=== PATIENT | female | born 1990 | race African-American/Black ===

== ENCOUNTER 2018-10-22 15:05 | Emergency (ER) | payer SELFPAY ==
[~2018-10-22] VITALS: Ht 162.6 cm; Wt 59.0 kg
[2018-10-22] MEDS ORDERED: diphenhydrAMINE 50 MG/ML VIAL IVP ONE (16:00)
[2018-10-22] MEDS ORDERED: KETOROLAC 30 MG/ML VIAL. IV ONE (16:00)
[2018-10-22] MEDS ORDERED: IV RINGERS SOLUTION,LACTATED 1,000 ML IV SCH (16:00)
--- NOTE | 2018-10-22 16:24 | PHYS DOC ---
Past History Past Medical History: Anemia, Sickle Cell Disease, UTI, Other Additional Past Medical Histor: pulmonary embolism Past Surgical History: Cholecystectomy, Other Alcohol Use: None Drug Use: None Adult General Chief Complaint Chief Complaint: LOWER EXT PAIN HPI HPI Patient is a 28 year old female who presents with bilateral lower extremity pain. This started yesterday. This is the same pain that she normally gets with her sickle cell pain crises. Patient denies any fever. Denies any leg swelling. Denies any new shortness of breath. Patient does have a history of sickle cell disease as well as pulmonary embolism. Patient is currently taking XARALTO. Patient denies any fever or cough. Denies any trauma, and no stasis. No rashes or bruising in her legs. Patient is normally managed for her sickle cell disease by [facility], her last apheresis was the end of August. She normally gets the apheresis every 4-5 weeks. She is not using glutamine or hydroxyurea because neither of these worked to decrease the frequency of her vaso-occlusive/pain crises.[] Review of Systems Review of Systems Constitutional: Denies fever or chills [] Eyes: Denies change in visual acuity, redness, or eye pain [] HENT: Denies nasal congestion or sore throat [] Respiratory: Denies cough or shortness of breath [] Cardiovascular: No chest pain or palpitations[] GI: Denies abdominal pain, nausea, vomiting, bloody stools or diarrhea [] : Denies dysuria or hematuria [] Musculoskeletal: See history of present illness[] Integument: Denies rash or skin lesions [] Neurologic: Denies headache, focal weakness or sensory changes [] Endocrine: Denies polyuria or polydipsia [] All other systems were reviewed and found to be within normal limits, except as documented in this note. Current Medications Current Medications Current Medications Medications (Trade) Dose Ordered Sig/Corey Start Time Stop Time Status Last Admin Dose Admin Diphenhydramine HCl (Benadryl) 50 mg 1X ONCE 10/22/18 16:00 10/22/18 16:01 DC Hydromorphone HCl (Dilaudid) 1 mg PRN Q15MIN PRN 10/22/18 16:00 10/23/18 15:59 Ketorolac Tromethamine (Toradol 30mg Vial) 30 mg 1X ONCE 10/22/18 16:00 10/22/18 16:01 DC Lactated Ringer's 1,000 ml @ 1,000 mls/hr Q1H 10/22/18 16:00 10/22/18 16:59 Allergies Allergies Allergies Coded Allergies Type Severity Reaction Last Updated Verified morphine Allergy Unknown 10/22/18 Yes Physical Exam Physical Exam Constitutional: Well developed, well nourished, no acute distress, non-toxic appearance. [] HENT: Normocephalic, atraumatic, bilateral external ears normal, oropharynx moist, no oral exudates, nose normal. [] Eyes: PERRLA, EOMI, conjunctiva normal, no discharge. [] Neck: Normal range of motion, no tenderness, supple, no stridor. [] Cardiovascular:Heart rate regular rhythm, no murmur [] Lungs & Thorax: Bilateral breath sounds clear to auscultation [] Abdomen: Bowel sounds normal, soft, no tenderness, no masses, no pulsatile masses. [] Skin: Warm, dry, no erythema, no rash. [] Back: No tenderness, no CVA tenderness. [] Extremities: Diffuse bilateral lower extremity tenderness, no cyanosis, no clubbing, ROM intact, no edema. [] Neurologic: Alert and oriented X 3, normal motor function, normal sensory function, no focal deficits noted. [] Psychologic: Affect normal, judgement normal, mood normal. [] Current Patient Data Vital Signs Vital Signs Date Time Temp Pulse Resp B/P (MAP) Pulse Ox O2 Delivery O2 Flow Rate FiO2 10/22/18 15:20 98.3 93 20 98 Room Air EKG EKG [] Radiology/Procedures Radiology/Procedures [] Course & Med Decision Making Course & Med Decision Making Pertinent Labs and Imaging studies reviewed. (See chart for details) The course: Patient arrived, was placed in bed, in tolerate exam well. Patient is improving with her pain medicines. At this time waiting for coagulation studies as well as reticulocyte count to evaluate for possibility of a blast crisis. Patient care endorsed to Dr. Lew at 1800 with laboratory tests pending along with pain management[] Impression: 1. Sickle Cell Crisis- 2. Leukocytosis 12. 3. Anemia 8.6 HGB- with Microcytic Hypochromic indices ( pt. report this is normal range for her). 4. UTI Pt. insistent on discharge before Retic count. Pt. declines admission, seems aware of risks. Exhibit [facility] capacity. Pt. states she will keep her follow up. Take Keflex 500 three times a day. Return if any concerns. Pt. May take vicoprofen for marked discomfort. Must follow up. Mahsa Disclaimer Mahsa Disclaimer This electronic medical record was generated, in whole or in part, using a voice recognition dictation system. Departure Departure: Impression: Primary Impression: Vaso-occlusive sickle cell crisis Referrals: PCP,NO (PCP) Scripts Hydrocodone/Ibuprofen (HYDROCODONE-IBUPROFEN 7.5-200 ) 1 Each Tablet 1 TAB PO PRN Q6HRS PRN for PAIN, #30 TAB 0 Refills Prov: MAGO LWE MD 10/22/18 Cephalexin (KEFLEX) 500 Mg Capsule 500 MG PO TID for // for 7 Days, BOTTLE Prov: MAGO LEW MD 10/22/18 HINA ACUNA DO Oct 22, 2018 16:24 MAGO LEW MD Oct 23, 2018 03:33
[2018-10-22 16:36] LABS: BASO # 0.1 x10^3/uL (0.0-0.2); BASO % 1 % (0-3); EOS # 0.3 x10^3/uL (0.0-0.7); EOS % 2 % (0-3); HEMATOCRIT 28.3 % (36.0-47.0); HEMOGLOBIN 8.6 g/dL (12.0-15.5); LYMPH # 2.2 x10^3/uL (1.0-4.8); LYMPH % 19 % (24-48); MEAN CORPUSCULAR HEMOGLOBIN 20 pg (25-35); MEAN CORPUSCULAR HGB CONC 31 g/dL (31-37); MEAN CORPUSCULAR VOLUME 67 fL (79-100); MONO # 0.3 x10^3/uL (0.0-1.1); MONO % 3 % (0-9); NEUT % 75 % (31-73); PLATELET COUNT 498 x10^3/uL (140-400); RED BLOOD COUNT 4.25 x10^6/uL (3.50-5.40); RED CELL DISTRIBUTION WIDTH 34.9 % (11.5-14.5)
[2018-10-22] MEDS: HYDROmorphone PF 1 MG/ML DISP.SYRIN IV/SQ PRN ×3 (16:40→18:45)
[2018-10-22 16:42] LABS: ALBUMIN/GLOBULIN RATIO 0.9 (1.0-1.7); CALCIUM 8.8 mg/dL (8.5-10.1); CREATININE 0.6 mg/dL (0.6-1.0); GFR 145.1; POTASSIUM 4.6 mmol/L (3.5-5.1); TOTAL BILIRUBIN 0.3 mg/dL (0.2-1.0); TOTAL PROTEIN 8.5 g/dL (6.4-8.2)
[2018-10-22 16:46] LABS: BILIRUBIN,URINE NEG (NEG); CLARITY,URINE HAZY; COLOR,URINE STRAW; GLUCOSE,URINE NEG (NEG)
[2018-10-22 16:47] LABS: BACTERIA,URINE MOD /HPF (0-FEW); NITRITE,URINE NEG (NEG); RBC,URINE 0 /HPF (0-2); SQUAMOUS EPITHELIAL CELL,UR MOD /LPF; UROBILINOGEN,URINE 0.2 mg/dL (0.2 mg/dL)
[2018-10-22 16:56] LABS: % BANDS 1 % (0-9); % SEGS 56 % (35-66)
[2018-10-22 16:57] LABS: % ATYL 7 % (0-0); % BASOS 2 % (0-3); % EOS 3 % (0-5); % LYMPHS 24 % (24-48); % MONOS 7 % (0-10); NUCLEATED RBC 4; PLT ESTIMATE ADEQUATE (ADEQUATE)
[2018-10-22 16:58] LABS: ANISOCYTOSIS PRESENT; HYPOCHROMIA PRESENT; MICROCYTOSIS PRESENT; POIKILOCYTOSIS PRESENT; POLYCHROMASIA PRESENT; TARGET CELLS PRESENT
[2018-10-22 18:18] VITALS: BP 116/75
[2018-10-22] MEDS ORDERED: CEPH-264 PO (18:53)
[2018-10-22] MEDS ORDERED: HYDR-79 PO (18:53)
[2018-10-22] MEDS ORDERED: CEPHALEXIN 250 MG CAPSULE PO ONE (19:15)
== END 2018-10-22 19:24 | disposition home or self-care (01) ==
LOC: ER 15:05
DX: D57.00 Hb-SS disease with crisis, unspecified (principal); D72.829 Elevated white blood cell count, unspecified; D50.8 Other iron deficiency anemias; Z87.440 Personal history of urinary (tract) infections; Z86.2 Personal history of diseases of the blood and blood-forming organs and certain disorders involving the immune mechanism; Z86.711 Personal history of pulmonary embolism; Z90.89 Acquired absence of other organs; Z88.5 Allergy status to narcotic agent
CPT/HCPCS: 36415; 80053; 81001; 81025; 85007; 85025; 85045; 85610; 87086; 96374; 96375; 96376; 99283; J1170; J1200; J1885; J7120